=== PATIENT | male | born 1950 ===

== ENCOUNTER 2024-12-26 08:34 | Outpatient (CLI) | payer MEDICARE, OTHER ==
--- NOTE | 2024-12-26 10:45 | RADIOLOGY REPORT ---
CT CT CHEST LOW DOSE INDICATION: LUNG CA SCREENING EXAM DATE: 12/26/2024 08:54 AM COMPARISON: None RADIATION DOSE: CTDIvol: 2 mGy, DLP: 118 mGy*cm PROCEDURE: Helical CT images were obtained of the chest without intravenous contrast. Sagittal and c oronal reconstructions are provided. ADDITIONAL IMAGES / REFORMATS: None All CT scans at this medical facility are performed using dose modulation techniques as appropriate t o a performed exam including the following: Automated exposure control was utilized; adjustment of th e MA and/or KV according to patient size; and use of iterative reconstruction technique. FINDINGS: Bones: Scattered degenerative changes are noted. Visualized Abdomen: Normal. Chest Wall: Normal. Soft tissues: Normal. Mediastinum: Normal. Heart: Coronary artery calcifications are noted. Vessels: Normal. Lymph Nodes: Normal. Pleura: Normal. Airways: Normal. Lung: Moderate lung emphysema. Other: None IMPRESSION: No acute intrathoracic abnormality. Moderate lung emphysema. No pulmonary nodule seen. Lung rads 1 , continued [address]
== END 2024-12-26 23:59 | disposition home or self-care (01) ==
LOC: RAD 08:34
PROVIDERS: ATTEND Nurse Practitioner
DX: Z12.2 Encounter for screening for malignant neoplasm of respiratory organs (principal); J43.9 Emphysema, unspecified; I25.10 Atherosclerotic heart disease of native coronary artery without angina pectoris; Z87.891 Personal history of nicotine dependence; M47.814 Spondylosis without myelopathy or radiculopathy, thoracic region
CPT/HCPCS: 71271